=== PATIENT | female | born 1965 | race Caucasian/White ===

== ENCOUNTER 2017-02-24 14:23 | Emergency (ER) | payer MEDICAID ==
[~2017-02-24] VITALS: Ht 170.2 cm; Wt 56.6 kg
[2017-02-24] MEDS ORDERED: PENI500T2 PO (15:16)
[2017-02-24] MEDS ORDERED: ACET1TAB12 PO (15:16)
== END 2017-02-24 15:26 | disposition home or self-care (01) ==
LOC: ER 14:24
DX: K08.89 Other specified disorders of teeth and supporting structures (principal); R22.0 Localized swelling, mass and lump, head; R51 Headache
CPT/HCPCS: 99283